=== PATIENT | female | born 1960 | race Caucasian/White ===

== ENCOUNTER 2017-01-01 10:25 | Outpatient (CLI) | payer OTHER ==
[~2017-01-01 10:25] MED LIST: BENADRYL25 M1 PO; CLIMARA; FISH OIL306 MG; MULTIPLE VITAMIN PO; PERCOCET1 TA4 PO; VITAMIN D-31000 UNIT PO
--- NOTE | 2017-01-09 08:43 | DIAGNOSTIC IMAGING REPORT ---
PROCEDURE: MG BILATERAL SCREENING W/CAD INDICATION: SCREENING, mother with a history of breast cancer pill TECHNIQUE: Bilateral CC and MLO digital views. COMPARISON: Left mammogram 11/28/2015, left breast ultrasound 04/18/2015 and bilateral mammograms 04/18/2015 and 10/10/2013. FINDINGS: Computer-aided detection applied. Dense parenchymal pattern with stable lymph nodes and fibroadenoma within the left breast seen on previous ultrasound. No change. IMPRESSION: 1. Stable left breast intramammary lymph nodes and fibroadenoma RESULT CODE: 2- Benign finding(s). A. A negative report should not delay biopsy if a dominant or clinically suspicious mass is present. 10-15% of cancers are not identified by x-ray. B. A negative report may reinforce clinical impression. C. Adenosis and dense breasts may obscure an underlying neoplasm. D. False positive reports average 6-10%. E.. A yearly screening mammogram is recommended. A reminder letter will be scheduled.
== END 2017-01-01 23:00 | disposition home or self-care (01) ==
LOC: MAM SRH 10:25
DX: Z12.31 Encounter for screening mammogram for malignant neoplasm of breast (principal)